=== PATIENT | male | born 1955 | race Caucasian/White ===

== ENCOUNTER 2017-06-02 11:42 | Inpatient (IN) | payer OTHER ==
[~2017-06-02] VITALS: Ht 187.9 cm; Wt 118.3 kg
--- NOTE | ~2017-06-02 | PR ---
[place], [place] PROGRESS NOTE NAME: ALEXIS BERMUDEZ [facility] #: [id number] UNIT #: [id number] ROOM: 310 DOCTOR: MARLYN HERNANDEZ BIRTHDATE: [birth year] DOS: 06/03/2017 HISTORY OF PRESENT ILLNESS: This is a 62-year-old gentleman presenting to [facility] Emergency Department with his for psychological evaluation. The states that she believes her needs psychological evaluation. He has been banging on the ivey at home, yelling out, screaming frequently since yesterday or the day before. His behaviors have gotten worse than normal. She called psychiatrist, Dr. Kwon who advised her to send him to the Emergency Department. He denies any recent illness. He has been taking medications as recommended. He attempted to jump out of a moving vehicles [address] to the Emergency Department, kept stating he did not know what was wrong with him. He answered questions with pleasant, did not exhibit any overt hallucinations, delusions or paranoia in Emergency Room, but further discussion with emergency doctor's just stated that just the patient was off. I could put his finger on it, but just stated that he was off. I discussed the case with the Emergency Room doctor and the patient was admitted to behavioral health unit to rule out organic factors and stabilize on his medications. PAST MEDICAL HISTORY: Alcohol abuse, looks like AFib, hyperlipidemia. MENTAL STATUS: He is alert and oriented to person, place, approximate time. No overt signs of auditory or visual hallucinations. No delusions of paranoias during my assessment with him today. He states that his sleep last night was poor, but there is a lot of ____ yesterday and today. When I asked him what the issue what brought him here and he is like, "I cannot get my emotions under control." He was very clear about this. He says "I don't know what is wrong with me." PLAN: It should be noted that I ordered serum ammonia level, it was quite elevated at 48. So, I went ahead and ordered some lactulose 30 grams b.i.d. and I will check his serum ammonia level in a few more days. With regards to his meds, he is on the maximum dose of Namenda 10 mg b.i.d., Exelon 6 mg b.i.d., Remeron 15 mg at bedtime to help with depression, sleep, and keep his appetite up. I went ahead and discontinued the Invega he was on, it looks like 9 mg, it was ineffective, and he is so impulsive right now. I went ahead and switched him over to Depakote 500 mg t.i.d. We will check valproic acid level in a few days and see if there is a cutdown on his impulsivity, mood lability. Contributing factor to his behaviors may just be the fact that his serum ammonia level was still elevated. So, we will see how he does over the next 24 hours. I can always adjust medications as need be. He has been fine for the staff so far, was pleasant, engaging in conversation, just confused and he knows that emotionally he has been unstable. So, we will try to engage in individual and carias milieu therapy and plan to discharge when stable. [place], [place] PROGRESS NOTE NAME: ALEXIS BERMUDEZ UNIT #: [id number] ROOM: 310 DOCTOR: MARLYN HERNANDEZ BIRTHDATE: [birth year] JUANCHO HERNANDEZ CNP CM:HA [id number] MARLYN HERNANDEZ 06/03/171936 interface
--- NOTE | ~2017-06-02 | PR ---
[place], [place] PROGRESS NOTE NAME[id number] UN[facility] #: [id number] ROOM: 310 DOCTOR: MARLYN HERNANDEZ BIRTHDATE: [birth year] DOS: 06/04/2017 SUMMARY OF VISIT: The patient was assessed in his room where he was sleeping in bed. Nursing did state that he seemed a little more isolative yesterday, but no significant behaviors. It did take him again few moments to wake up, acknowledged that I was in the room and pulled a blanket from over his head like he did yesterday. It does take him a while to respond to my questions, but as long as I am diligent and keep asking those questions in a pleasant tone, he eventually responds, engages maybe 1 or 2 word responses, but he ends up smiling and answering appropriately. MENTAL STATUS: Alert and oriented to person, place, approximate time. There are no overt signs of auditory or visual hallucinations, delusions, paranoia, shaun or hypomania. He does seem a little depressed. His main issue ____ saying that he could not get his emotions under control. He would get really agitated and he did not know why. It should be noted that his serum ammonia level as dictated yesterday was elevated at 48. I did start him on some lactulose. He started receiving this yesterday. This could be a contributing factor to his agitation. PLAN: So at this time, we are going to continue with the lactulose. I had increased his Depakote, which may be causing a little bit of sluggishness in him. I am going to go ahead and order a valproic acid level. So we could see where we are at and if he continues to be a little on the lethargic side by tomorrow, I would probably recommend dropping down his Depakote to see if we can make him a little bit more alert and we will go ahead and check a serum ammonia level to make sure that is coming down as well. JUANCHO HERNANDEZ CNP CM:PNTRANS [phone] MARLYN HERNANDEZ 06/05/17 0328 interface
--- NOTE | ~2017-06-02 | EKG ---
[place], [place] ELECTROCARDIOGRAM REPORT NAME: ALEXIS BERMUDEZ UNIT #: [id number] ROOM: 310 DOCTOR: CARMINE JAY MD BIRTHDATE: [birth year] DOS: 06/02/2017 TIME: 1350 hours. Atrial fibrillation with ventricular rate of 100 beats per minute. An intraventricular conduction defect. An abnormal ECG. No previous tracing is available for comparison. CARMINE JAY MD CM:EKGRPT:ELECTROCARDIOGRAM REPORT [id number] CARMINE JAY MD
[~2017-06-02 11:42] MED LIST: ATIVAN1 MG PO; ATIVAN2 MG/ML IM; ATORVASTATIN CA10 M1 PO; D-1000 185 MG-11 TAB PO; FLUOXETINE HYDR20 M1 PO; FUROSEMIDE20 M1 PO; GEODON20 M1 IM; GEODON20 MG IM; INVEGA3 MG PO; LISINOPRIL5 MG PO; Lopressor25 MG PO; REMERON15 M2 PO; RISPERIDONE1 MG PO; XARE20MG PO
--- NOTE | 2017-06-02 12:05 | NUR ---
PATIENT GIVEN GOWN AND URINAL FOR URINE SPECIMEN.
[2017-06-02 13:46] LABS: BILIRUBIN NEGATIVE (NEGATIVE); BLOOD TRACE-INTACT (NEGATIVE); CLARITY CLEAR (CLEAR); COLOR YELLOW (YELLOW); GLUCOSE NEGATIVE (NEGATIVE); KETONE NEGATIVE (NEGATIVE); LEUKO ESTERASE NEGATIVE (NEGATIVE); NITRITE NEGATIVE (NEGATIVE); PH 5.5 (5.0-9.0); UROBILINOGEN 0.2 E.U./dl (0.2-1.0)
[2017-06-02 13:53] LABS: URINE AMPHETAMINES < 1000 (1000ng/ml); URINE BARBITURATES < 200 (200ng/ml); URINE BENZODIAZEPINES < 200 (200ng/ml); URINE CANNABINOIDS (THC) < 50 (50ng/ml); URINE COCAINE < 300 (300ng/ml); URINE METHADONE < 300 (300ng/ml); URINE OPIATES < 300 (300ng/ml)
[2017-06-02 13:54] LABS: URINE PHENCYCLIDINE < 25 (25ng/ml)
[2017-06-02 13:55] LABS: BACTERIA TRACE
[2017-06-02 13:57] LABS: BASO % 0.4 % (0.0-1.0); EOS # 0.2 10*3/uL (0.0-0.4); HEMOGLOBIN 13.6 g/dl (14.0-18.0); LYMPH # 1.2 10*3/uL (1.3-4.4); LYMPH % 16.2 % (27.0-41.0); MEAN CELL VOLUME 95.6 fl (80.0-94.0); MEAN CORPUSCULAR HGB 33.3 pg (27.0-31.0); MEAN CORPUSCULAR HGB CONC 34.9 g/dl (33.0-37.0); MEAN PLATELET VOLUME 10.4 fl (9.6-12.3); MONO # 0.6 10*3/uL (0.1-1.0); MONO % 7.3 % (3.0-9.0); NEUT # 5.5 10*3/uL (2.3-7.9); NEUT % 73.4 % (47.0-73.0); PLATELET COUNT AUTOMATED 237 10*3/uL (130-400); RED BLOOD COUNT 4.08 10*6/uL (4.50-5.90); WHITE BLOOD COUNT 7.5 10*3/uL (4.8-10.8)
[2017-06-02 14:12] LABS: ALBUMIN 4.1 gm/dl (3.1-4.5); ALKALINE PHOSPHATASE 100 U/L (45-117); BUN 12 mg/dl (7-24); CHLORIDE 101 mmol/L (98-107); CREATININE 0.97 mg/dL (0.70-1.30); POTASSIUM 3.7 mmol/L (3.5-5.1); SGOT/AST 20 IU/L (3-35); SGPT/ALT 25 U/L (12-78); SODIUM 139 mmol/L (136-145); TOTAL PROTEIN 7.9 gm/dL (6.4-8.2)
[2017-06-02 14:25] LABS: ACETAMINOPHEN (TYLENOL) < 2.0 ug/ml (10-30); ETHYL ALCOHOL < 3.0 mg/dl (<3)
--- NOTE | 2017-06-02 14:42 | NUR ---
PATIENT SITTING IN BED AT THIS TIME. SIG OTHER HAS PATIENTS SHIRT. PATIENT APPEARS IN NO DISTRESS. WILL CONTINUE TO [place]. CALL LIGHT WITHIN REACH. IN DIRECT LINE OF VISION AT THIS TIME FROM NURSES STATION.
--- NOTE | 2017-06-02 16:28 | NUR ---
PATIENT IS CURRENTLY LAYING IN BED AT THIS TIME. APPEARS IN NO DISTRESS. WILL CONTINUE TO MONITOR. IN DIRECT LINE OF VISION OF NURSES STATION.
--- NOTE | 2017-06-02 17:28 | NUR ---
PATIENT IS SITTING IN BED AT THIS TIME WITH AT BEDSIDE. PATIENT IS CURRENTLY IN NO DISTRESS. WILL CONTINUE TO MONITOR. IN DIRECT LINE OF VISION OF NURSES STATION.
--- NOTE | 2017-06-02 17:58 | NUR ---
"SO" HAS LIST OF MEDS PHONE [phone].
[2017-06-02] MEDS ORDERED: LATU60TA PO (17:59)
[2017-06-02] MEDS ORDERED: VITAMIN D31000 UNI1 PO (18:01)
[2017-06-02] MEDS ORDERED: FUROSEMIDE40 MG PO (18:01)
[2017-06-02] MEDS ORDERED: ZESTRIL5 MG PO (18:02)
[2017-06-02] MEDS ORDERED: POTASSIUM CHLO10 MEQ PO (18:02)
[2017-06-02] MEDS ORDERED: RIVASTIGMINE TAR6 M1 PO (18:03)
[2017-06-02] MEDS ORDERED: XARE20MG PO (18:05)
[2017-06-02] MEDS ORDERED: NAMENDA10 MG PO (18:05)
[2017-06-02] MEDS ORDERED: Lopressor25 MG PO (18:05)
[2017-06-02] MEDS ORDERED: LIPITOR10 MG PO (18:06)
[2017-06-02] MEDS ORDERED: MIRTAZAPINE45 MG PO (18:06)
--- NOTE | 2017-06-02 18:07 | NUR ---
PATIENT CURRENTLY WATCHING TV AT THIS TIME. APPEARS IN NO DISTRESS. WILL CONTINUE TO MONITOR. CALL LIGHT WITHIN REACH. IN DIRECT LINE OF VISION OF NURSES STATION.
--- NOTE | 2017-06-02 18:30 | NUR ---
REPORT CALLED TO [facility] BY EVA DURON.
--- NOTE | 2017-06-02 18:54 | NUR ---
PATIENT REPORTEDLY HAS BEEN INCREASINGLY MORE AGITATED, AGGRESSIVE, AND ACTING OUT AT HOME, BEGINNING YESTERDAY. PT'S REPORTEDLY STATED THAT PATIENT TRIED TO JUMP OUT OF THE CAR 3X TODAY AND WAS BANGING ON AMES AT HOME. EMERGENCY DEPARTMENT STAFF REPORTED THAT HOME MEDICATION WERE REVIEWED WITH PATIENT'S SISTER IN LAW (WHO IS IN CONTROL OF HIS MEDICATIONS) FOR VERIFICATION OF ACCURATE HOME MEDICATION LIST. HOME MEDICATIONS WERE REVIEWED WITH JUANCHO ZUNIGA VIA TELEPHONE. ADMISSION ORDERS RECIEVED. SEE EMAR FOR MORE DETAILS. DR. RON ROGER MADE AWARE OF CONSULT FOR MEDICAL MANAGEMENT VIA TELEPHONE AT 1850. HE STATES THAT DOCTORS WILL BE UP TO SEE PATIENT LATER TONIGHT. NO NEW ORDERS AT THIS TIME. PT ARRIVED TO UNIT AT 1855. PT ADMITTED WITH ACUTE PSYCHOSIS AND SIGNED IN VOLUNTARILY.
[2017-06-02 19:55] VITALS: BP 102/62
[2017-06-02 20:32] VITALS: BP 102/62
--- NOTE | 2017-06-02 21:08 | NUR ---
DR. KING ON UNIT TO SEE PATIENT
--- NOTE | 2017-06-03 04:12 | NUR ---
24 HR chart check completed.
--- NOTE | 2017-06-03 06:26 | NUR ---
B: INCREASED AGGRESSION, AGITATION I: THERAPEUTIC COMMUNICATION, 1:1, GOAL ORIENTED R: DECREASED YELLING OUT AND NO BANGING ON AMES P: PARTICIPATE IN GROUPS, MEDICATION COMPLIANCE, DECREASE ANXIETY
--- NOTE | 2017-06-03 06:30 | NUR ---
PATIENT SLEPT > 8 HOURS. VOICES NO COMPLAINTS OF PAIN OR DISCOMFORT
[2017-06-03 07:40] VITALS: BP 112/63
[2017-06-03 08:08] LABS: THYROID STIM HORMONE (HS) 1.39 uIU/ml (0.358-4.75)
[2017-06-03 08:25] LABS: VITAMIN D, 25-HYDROXY 37.4 ng/mL (30-100)
--- NOTE | 2017-06-03 10:21 | NUR ---
PATIENT IS ALERT AND ORIENTED TO PERSON, PLACE WITH CONFUSION OF TIME, ABLE TO VOICE NEEDS. RESPIRATIONS ARE EASY, NON-LABORED ON ROOM AIR. MOOD IS STABLE, GOAL DIRECTED, ORGANIZED. DENIES ANY HALLUCINAITONS, DEULSIONS, HI/SI. CALM AND PURPOSEFUL. ISOLATIVE AT TIMES, INTERACTIVE WITH STAFF. PATIENT IS AMBULATORY WITH STEADY GAIT. INDEPENDENT WITH ACTIVITIES OF DAILY LIVING, VERBAL CUEING ONLY. GOOD MEAL INTAKES AND ADEQUATE FLUIDS. MEDICATION COMPLIANT WITH EDUCATION ON MEDICATIONS PROVIDED. CONTINENT OF BOWEL AND BLADDER. Q 15 MINUTE SAFETY CHECKS MAINTIANED.
[2017-06-03 19:45] VITALS: BP 122/20
--- NOTE | 2017-06-03 19:59 | NUR ---
24 HR chart check completed.
--- NOTE | 2017-06-03 22:56 | NUR ---
B- ISOLATIVE I- 1:1 WITH STAFF TO PROMOTE INTERACTIONS, ENCOURAGE PT TO LEAVE ROOM FOR SNACK AND INTERACTIONS WITH PEERS R- PT NOT RECEPTIVE WITH INTERACTIONS WITH STAFF, PT ATTENDED SNACK AND INTERACTED TO A STAFF MEMBER HOWEVER DID NOT INTERACT WITH PEERS. P - ENCOURAGE PT TO ATTEND GROUPS TO PROMOTE INTERACTIONS WITH STAFF AND PEERS. MEDICATION COMPLIANT. DURING MED PASS PT TOOK MEDICATIONS AND THEN QUICKLY SHOVED THE MEDICINE CUP UNDER HIS BLANKETS. WHEN PT WAS ASKED TO GIVE THE NURSE THE CUP THE PT STATED HE WAS SAVING THEM TO TAKE HOME AND PUT MEDICATIONS IN. AFTER TALKING TO PT ABOUT THIS HE GAVE THE NURSE THE MEDICINE CUP. HE TRIED TO DO THIS AGAIN WHEN HE WAS GIVEN ANOTHER MEDICATION. RE EDUCATED PT ON THIS AGAIN. PT ASKED IF HE COULD TAKE 2000 MEDICINE CUPS HOME WHEN PT WAS TOLD WE COULD NOT GET HIM THAT MANY TO TAKE HOME PT REPLIED "OK I WILL START WITH 200."
--- NOTE | 2017-06-04 05:55 | NUR ---
PT SLEPT >9 HOURS. NO S/S OF DISTRESS NOTED. NO C/O PAIN. SEE [facility] FOR SPECIFIC MONITORING. Q15 MINUTE SAFETY CHECKS MAINTAINED.
[2017-06-04 07:43] VITALS: BP 114/83
--- NOTE | 2017-06-04 11:02 | NUR ---
ON UNIT TO SEE PATIENT.
--- NOTE | 2017-06-04 13:39 | NUR ---
PATIENT IS DIAPHORTIC, COOL AND CLAMMY AND HAS INCREASE JAW CLENCHING. VITALS:127/82,86,96.9, 18, 96%RA, BLOOD SUGAR 125. JUANCHO HERNANDEZ CNP NOTIFIED OF CHANGES, REVIEWED MEDICAITONS, NEW ORDERS TO D/C DEPAKOTE AND DEPAKOTE LEVELS.
--- NOTE | 2017-06-04 14:33 | NUR ---
PATIENT IS ALERT AND ORIENTED TO PERSON, PLACE AND TIME WITH CONFUSION. RESPIRATIONS ARE EASY, NON-LABORED. MOOD IS DEPRESSED, THOUGHT PROCESS IS SLOW, FLAT AFFECT, CAN BE ISOLATIVE AT TIMES. DENIES ANY HALLUCINAITONS, DELUSIONS, HI/SI. DENIES ANY PAIN. VERBAL CUEING FOR ACTIVITIES OF DAILY LIVING. AMBULATORY WITH STEADY GAIT. INTERACTIVE WITH STAFF AND ENJOYS VISITING HOURS WITH SPOUSE. MEAL INTAKES ARE GOOD WITH ADEQUATE FLUIDS, MEDICATION COMPLIANT. Q 15 MINUTE SAFETY CHECKS.
--- NOTE | 2017-06-04 14:58 | NUR ---
SW completed psychosocial assessment with Pt and Meme. Discharge plan is for Pt to return home with Meme. Inhome services and placement options were discussed.
[2017-06-04 19:36] VITALS: BP 113/84
--- NOTE | 2017-06-04 19:59 | NUR ---
24 HR chart check completed.
--- NOTE | 2017-06-04 21:21 | NUR ---
B- ISOLATIVE I - 1:1 WITH STAFF TO PROMOTE INTERACTIONS, ENCOURAGED PT TO ATTEND SNACK TIME AND INTERACT WITH PERS. R- PT NOT RECEPTIVE TO INTERACTIONS WITH STAFF. NO EYE CONTACT WHEN BEING TALKED TO THIS EVENING, PT ATTENDED SNACK TIME BUT ISOLATED HIMSELF AWAY FROM PEERS. P - CONTINUE TO ENCOURAGE PT TO ATTEND GROUP AND INTERACT WITH STAFF AND PEERS. MEDICATION COMPLIANT. NO S/S OF DISTRESS NOTED. NO C/O PAIN. PT ATTEMPTED TO HIDE MEDICATION CUP UNDER BLANKETS, EASILY REDIRECTED.
--- NOTE | 2017-06-05 06:56 | NUR ---
PT SLEPT GREATER THAN 8 HOURS. NO S/S OF DISTRESS. NO C/O PAIN. SEE [facility] FLOWSHEET FOR SPECIFIC MONITORING.
[2017-06-05 07:57] VITALS: BP 120/78
--- NOTE | 2017-06-05 10:20 | NUR ---
YAKOV BA CNP ON UNIT TO SEE PATIENT.
--- NOTE | 2017-06-05 12:22 | NUR ---
PT did not attend RT Group/positive traits this morning. PT was in his bed when AT asked him to come to group. PT stated that yes he would come to group. AT went on to other PTs rooms. PT did not come out so AT again encourage PT to come join group. PT stated that yes he would come and was begining to get up,so AT went on to other PTs rooms. PT was still in bed. AT encouaged PT a 3rd time but PT stated he was tired and didnt want to go. A Milieu tried to encourage PT to join but PT just refused stating he was tired.
--- NOTE | 2017-06-05 14:41 | NUR ---
PATIENT IS ALERT TO PERSON, PALCE AND TIME WITH CONFUSION. ABLE TO VOICE NEEDS. RESPIRATIONS ARE EASY, NON-LABORED. DENIES ANY HALLUCINATIONS, DELUSIONS, HI/SI. DENIES ANY PAIN. MOOD IS STABLE, THOUGHT PROCESS IS SLOW AND CONFUSED. ISOLATIVE WITH MUCH ENCOURAGEMENT TO ATTEND ACTIVITY GROUPS. PATIENT IS AMBULATORY WITH STEADY GAIT. APPETITE IS GOOD WITH ADEQUATE FLUIDS. JAW CLENCHING NOTED AND ALEKS MONROE, SENIOR WRITER UPDATED. CONTINENT OF BOWEL AND BLADDER. MEDICATION COMPLIANT. Q 15 MINUTE SAFETY CHECKS MAINTAINED.
--- NOTE | 2017-06-05 15:43 | NUR ---
PT did attend RT Group/Crafts with positivity. PT also participated. PT was with drawn but spoke when spoken to. PT was pleasant and appropriate during group
--- NOTE | 2017-06-05 16:31 | NUR ---
PATIENT TOOK MEDICATIONS WITHOUT DIFFICULTY AND COMPLIANT THIS AFTERNOON, IV TO LEFT FOREARM INTACT, FREE FROM WARMTH AND REDNESS NOTED
--- NOTE | 2017-06-05 19:32 | NUR ---
24 HR chart check completed.
[2017-06-05 19:51] VITALS: BP 146/66
[2017-06-05 20:21] VITALS: BP 104/70
--- NOTE | 2017-06-05 21:12 | NUR ---
PT CALLED IN FOR UPDATE. UPDATED ON PT CONDITION. ASKED WHEN PT WOULD BE RELEASED AND REDIRECTED TO CALL BACK IN THE MORNING AFTER THE DR ROUNDS.
--- NOTE | 2017-06-06 00:54 | NUR ---
B- ISOLATIVE I- 1:1 WITH STAFF AND ENCOURAGED PT TO JOIN SNACK WITH HIS PEERS R- PT INTERACTIVE AT SNACK WITH 2 PEERS. P - ENCOURAGE PT TO ATTEND GROUP AND INTERACT MORE WITH PEERS. MEDICATION COMPLIANT. NO S/S OF DISTRESS. NO C/O PAIN.
--- NOTE | 2017-06-06 06:11 | NUR ---
PT SLEPT 8+ HOURS THIS SHIFT. NO S/S OF DISTRESS OR PAIN NOTED. SEE [facility] FLOWSHEET FOR SPECIFC MONITORING.
--- NOTE | 2017-06-06 08:15 | NUR ---
TREATMENT TEAM WAS HELD WITH THE FOLLOWING PRESENT: DR. HANSEN, DIRECTOR, RN, AT, SW, AND MEDICAL STUDENT. DR. HANSEN FEELS THAT FAMILY SHOULD CONSIDER PLACEMENT. SW DISCUSSED OPTIONS WITH AND INSISTS ON TAKING HIM HOME. FAMILY ASSISTS HER.
[2017-06-06 09:00] VITALS: BP 122/74
[2017-06-06 09:03] VITALS: BP 122/74
--- NOTE | 2017-06-06 09:30 | NUR ---
ARACELY Bishop CM INFORMED SW AT DISCHARGE MEETING HAT PT IS OUT OF NETWORK AND HAS A CALL INTO THEM TO SEE IF STAY CAN BE COVERED.
--- NOTE | 2017-06-06 13:04 | NUR ---
Prairie Hole/Puzzles The object of this game is to throw barrios bags into holes and putting puzzles together as a group. Patient attended this group as well as participated. This group helped the patient with socialization, focusing on a task and self esteem. PT seemed to enjoy corn hole game and showed great happiness when he won 1st place. Patient refused to join in putting a puzzle together as a group. Offered to do 1:1 putting separerate puzzle together but patient refused again. Patient stated he didnt like puzzles. Patient took his prize and went to sleep in a chair
--- NOTE | 2017-06-06 14:15 | NUR ---
Attempted to do assessment for Activities on patient on Monday but was unable to due to increased confussion of patient.
--- NOTE | 2017-06-06 14:18 | NUR ---
CLINICALS FAXED TO [facility] JUST 4 ME.
--- NOTE | 2017-06-06 15:32 | NUR ---
Matching Game The object of the game is to place the pieces on the table in rows and to take turns getting matches by remebering where the matches are. Patient refused to attend this group. PT was in his room sleeping and when he was encouraged to come to group patient refused. Talked to patient about staying in his room and sleeping too much but patient still refused. This would of helped the patient with memory skills as well as socialization and focusing
--- NOTE | 2017-06-06 17:20 | NUR ---
PT IS ALERT AND ORIENTED TO PERSON, PLACE, TIME, WITH PERIODS OF CONFUSION. PT NOTED TO BE SLOW IN HIS THOUGHT PROCESSES, REQUIRES STAFF TO ANSWER THE SAME QUESTION MULTIPLE TIMES D/T SLOW PROCESSING. RESPIRATIONS EASY ON ROOM AIR. MOOD IS STABLE, AFFECT IS FLAT. SPEECH IS SLOW BUT COHERENT, ABLE TO MAKE NEEDS KNOWN. PT DENIES HALLUCINATIONS, NO RESPONSE TO INTERNAL STIMULI NOTED. PT DENIES SI/HI. NO DELUSIONS/PARANOIA NOTED. MEDICATION COMPLIANT WITHOUT DIFFICULTY. AMBULATORY WITH STEADY GAIT. CONTINENT OF BOWEL AND BLADDER. FEEDS SELF, GOOD APPETITE NOTED WITH ADEQUATE FLUID INTAKE. PT ISOLATIVE TO ROOM BUT ATTENDS GROUPS WITH ENCOURAGEMENT FROM STAFF. PLEASANT AND COOPERATIVE. NO DISTRESS NOTED. Q15 MIN SAFETY CHECKS MAINTAINED, REFER TO [facility] FLOWSHEET FOR SPECIFIC MONITORING.
--- NOTE | 2017-06-06 17:31 | NUR ---
SHIFT CHART CHECK COMPLETED.
[2017-06-06 19:55] VITALS: BP 111/79
--- NOTE | 2017-06-06 21:00 | NUR ---
MEDICATION COMPLIANT. REVIEWED ALL MEDICATIONS. ATE SNACK. NO COMPLAINTS OFFERED
--- NOTE | 2017-06-06 22:21 | NUR ---
HAD A GOOD EVENING. MEDICATION COMPLIANT. ATE SNACK. INTERACTIVE WITH STAFF. GAIT STEADY
--- NOTE | 2017-06-07 05:14 | NUR ---
HAS SLEPT WELL ALL SHIFT. MOVES SELF IN BED WITHOUT DIFFICULTY. 24 HR chart check completed.
[2017-06-07 08:16] VITALS: BP 113/77
--- NOTE | 2017-06-07 12:47 | NUR ---
Trivia/Riddles/Think Fast This group would be good for this patient because it would help with socialization, thinking and self esteem. Patient refused to participate. When AT encouraged patient to come x2 patient stated he was coming just stretching. Coming back to patients room patient still in bed with eyes closed. Encouraged patient again to com participate and explained what was happening in group. Patiient did state he thought he would enjoy it but then covered his head with a blanket and ignored staff
--- NOTE | 2017-06-07 14:00 | NUR ---
YAKOV BA PODIATRIST ORTHOPEDIC WITH HOSPITALISTS GROUP HERE TO SEE PT AT THIS TIME.
--- NOTE | 2017-06-07 14:39 | NUR ---
Painting/Positive Traits Patient did attend group as well as participate this afternoon. This group helped this patient with focusing on a task as well as socialization. Patient was very friendly during group,joking and grinning with other patient and staff
--- NOTE | 2017-06-07 15:24 | NUR ---
PT IS ALERT AND ORIENTED TO PERSON, PLACE, TIME WITH SOME PERIODS OF CONFUSION NOTED. RESPIRATIONS EASY ON ROOM AIR. MOOD IS STABLE WITH FLAT AFFECT. SPEECH IS SLOW, PT CONTINUES TO BE SLOW TO PROCESS INFORMATION BUT IS ABLE TO MAKE NEEDS KNOWN TO STAFF. PT DENIES HALLUCINATIONS, NO RESPONSE TO INTERNAL STIMULI NOTED. PT DENIES SI/HI. NO DELUSIONS/PARANOIA NOTED. MEDICATION COMPLIANT WITHOUT DIFFICULTY. PT VOICES DESIRE TO GO HOME, ENCOURAGED PT TO DISCUSS WITH DR. HANSEN THE MORNING, PT VERBALIZED UNDERSTANDING. PT IS AMBULATORY WITH STEADY GAIT, INDEPENDENT WITH ADLS, REFUSED TO GET IN THE SHOWER DESPITE ENCOURAGEMENT FROM STAFF. FEEDS SELF, DISPLAYS GOOD APPETITE AND ADEQUATE FLUID INTAKE. OFFERS NO COMPLAINTS. NO DISTRESS NOTED. Q15 MIN SAFETY CHECKS MAINTAINED, REFER TO [facility] FLOWSHEET FOR SPECIFIC MONITORING.
--- NOTE | 2017-06-07 17:11 | NUR ---
SHIFT CHART CHECK COMPLETED.
[2017-06-07 22:02] VITALS: BP 104/67
--- NOTE | 2017-06-08 02:21 | NUR ---
24 HR chart check completed.
--- NOTE | 2017-06-08 05:41 | NUR ---
B: AGITATION, WITHDRAWN I: THERAPEUTIC COMMUNICATION, 1:1 R: PATIENT WANTING TO SIT IN QUIET ROOM BEFORE GOING TO BED, SNACK PROVIDED P: PARTICIPATE IN GROUPS, MEDICATION COMPLIANCE, HELP TO FIND COPING SKILLS TO DECREASE AGITATION
--- NOTE | 2017-06-08 06:37 | NUR ---
PATIENT SLEPT OVER EIGHT HOURS THIS SHIFT. PATIENT REPOSITIONED SELF FOR COMFORT AND PRESSURE RELIEF
[2017-06-08 07:44] VITALS: BP 134/87
[2017-06-08] MEDS ORDERED: MIRTAZAPINE15 M2 PO (08:26)
[2017-06-08] MEDS ORDERED: Vitamin D PO (08:26)
[2017-06-08] MEDS ORDERED: LACTULOSE20 GM/30 M PO (08:26)
[2017-06-08] MEDS ORDERED: RIVASTIGMINE TAR3 M1 PO (08:26)
[2017-06-08] MEDS ORDERED: MEMANTINE HCL10 MG PO (08:26)
--- NOTE | 2017-06-08 08:27 | NUR ---
CALL PLACED TO [phone], SPOKE TO DR. JULIAN, MADE AWARE OF DISCHARGE FOR TODAY AROUND 1PM HOME WITH .
[2017-06-08] MEDS ORDERED: FUROSEMIDE40 MG PO (09:18)
--- NOTE | 2017-06-08 10:45 | NUR ---
SW gave Director Of Managed Care information to make follow up appointments for Pt's discharge today at 1:30pm.
--- NOTE | 2017-06-08 12:45 | NUR ---
Torch Cutter Note: Appointments made with the following: [facility] on 06/14/17 at 10:30 am, with Dr. Marcelino Ko for 06/20/17 at 11:10 am, with [facility] beginning tomorrow for Medication Management/Education.
--- NOTE | 2017-06-08 12:59 | NUR ---
PT IS ALERT AND ORIENTED TO PERSON, PLACE, TIME, SOME MILD CONFUSION NOTED AT TIMES. RESPIRATIONS EASY ON ROOM AIR. MOOD IS STABLE, AFFECT IS APPROPRIATE. SPEECH IS WNL AND COHERENT, ABLE TO MAKE NEEDS KNOWN. PT DENIES HALLUCINATIONS, NO RESPONSE TO INTERNAL STIMULI NOTED. PT DENIES SI/HI. NO PARANOIA/DELUSIONS NOTED. MEDICATION COMPLIANT WITHOUT DIFFICUTLY. PT IS AMBULATORY WITH STEADY GAIT, INDEPENDENT WITH ADLS, FEEDS SELF, GOOD APPETITE AND ADEQUATE FLUID INTAKE. PT VERBALIZES READINESS TO GO HOME TODAY WITH . NO DISTRESS NOTED. Q15 MIN SAFETY CHECKS MAINTAINED, REFER TO [facility] FLOWSHEET FOR SPECIFIC MONITORING.
--- NOTE | 2017-06-08 14:10 | NUR ---
PT DISCHARGED AT THIS TIME TO HOME VIA PRIVATE VEHICLE WITH PT'S , [facility]. ALL DISCHARGE INSTRUCTIONS AND MEDICATION LISTS WERE REVIEWED WITH THE PT AND PRIOR TO DISCHARGE WITH THEIR STATED UNDERSTANDING. ALL PERSONAL BELONGINGS WERE SENT WITH THE PT. PT LEFT THE UNIT IN STABLE CONDITION AT 1210 ESCORTED VIA WHEELCHAIR BY MALINDA MANAGER PRESENTATION.
--- NOTE | 2017-06-08 14:36 | NUR ---
JULIAN reviewed discharge paperwork with Pt and Meme. Copies of paperwork given to Pt. Pt discharged home with follow up appointments and Visiting Nurse for med managemnt. Pt happy to be going home.
== END 2017-06-08 14:10 | disposition home or self-care (01) | DRG 885 ==
LOC: ED 11:42 → 3N 18:37
PROVIDERS: Family Medicine Adult Medicine; Nurse Practitioner Adult Health; ADMIT Psychiatry & Neurology Psychiatry
DX: F23 Brief psychotic disorder (principal); F10.27 Alcohol dependence with alcohol-induced persisting dementia; F03.91 Unspecified dementia, unspecified severity, with behavioral disturbance; E78.5 Hyperlipidemia, unspecified; I48.2 Chronic atrial fibrillation; M19.91 Primary osteoarthritis, unspecified site; D64.9 Anemia, unspecified; R73.9 Hyperglycemia, unspecified; Z79.899 Other long term (current) drug therapy; Z87.891 Personal history of nicotine dependence; Z82.49 Family history of ischemic heart disease and other diseases of the circulatory system; Z83.3 Family history of diabetes mellitus; Z82.3 Family history of stroke; Z86.73 Personal history of transient ischemic attack (TIA), and cerebral infarction without residual deficits; Z87.81 Personal history of (healed) traumatic fracture